=== PATIENT | male | born 1940 ===

== ENCOUNTER 2024-11-09 15:44 | Emergency (ER) | payer MEDICARE, BC, MEDICAID ==
[2024-11-09 16:07] LABS: BASOPHILS ABSOLUTE AUTO 0.03 K/uL (0.00-0.20); BASOPHILS PERCENT AUTO 0.3 % (0.0-2.0); EOSINOPHILS ABSOLUTE AUTO 0.01 K/uL (0.00-0.50); EOSINOPHILS PERCENT AUTO 0.1 % (0.0-5.0); HEMATOCRIT 43.2 % (39.0-49.0); HEMOGLOBIN 14.9 g/dL (13.1-16.8); IMMATURE GRAN ABSOLUTE AUTO 0.02 10^3/uL (0.00-0.04); IMMATURE GRAN PERCENT AUTO 0.2 % (0.0-0.4); LYMPHOCYTES ABSOLUTE AUTO 1.33 K/uL (0.50-3.50); LYMPHOCYTES PERCENT AUTO 14.6 % (10.0-50.0); MEAN CORPUSCULAR HEMOGLOBIN 31.6 pg (28.2-33.3); MEAN CORPUSCULAR HGB CONC 34.5 g/dL (31.7-36.0); MEAN CORPUSCULAR VOLUME 91.7 fL (84.0-98.0); MONOCYTES ABSOLUTE AUTO 1.11 K/uL (0.00-1.00); MONOCYTES PERCENT AUTO 12.2 % (2.0-14.0); NEUTROPHILS ABSOLUTE AUTO 6.61 K/uL (1.40-7.00); NEUTROPHILS PERCENT AUTO 72.6 % (45.0-80.0); PLATELET COUNT,PLT 304 K/uL (150-350); RED BLOOD CELL COUNT 4.71 M/uL (4.33-5.41); RED CELL DISTRIBUTION WIDTH 12.8 % (11.2-14.1); WHITE BLOOD CELL COUNT,WBC 9.1 K/uL (4.0-10.2)
[2024-11-09 16:28] LABS: PROTHROMBIN TIME 10.3 SEC (9.0-11.1); PTT,PARTIAL THROMBOPLSTIN TIME 26.5 SEC (23.8-34.4)
[2024-11-09 16:29] LABS: ANION GAP,POC 17 mmol/L (7-16); BLOOD UREA NITROGEN,POC 18 mg/dL (8-26); CARBON DIOXIDE,POC 19 mmol/L (23-30); CHLORIDE,POC 103 mmol/L (98-107); POTASSIUM,POC 4.8 mmol/L (3.5-4.5); SODIUM,POC 134 mmol/L (138-146)
[2024-11-09 16:30] LABS: CALCIUM IONIZED,POC 1.16 mmol/L (1.12-1.32)
[2024-11-09 16:41] LABS: LACTIC ACID 2.4 mmol/L (0.4-2.0)
[2024-11-09] MEDS: Iopamidol 755 Mg/ML 100 ML Bottle ONE (16:45)
[2024-11-09] MEDS: Labetalol 20 MG/4 ML Syringe IVPUSH ONE ×2 (17:26→18:49)
[2024-11-09] MEDS: Tenecteplase 50 MG Kit IVPUSH ONE (18:08)
[2024-11-09] MEDS: Iopamidol 755 Mg/ML 100 ML Bottle IVPUSH STA (18:20)
[2024-11-09] MEDS: niCARdipine/Normal Saline 20 MG in Premix Bag 1 BAG IV SCH (18:24)
[2024-11-09] MEDS: Sodium Chloride 0.9% 500 ML IV SCH (20:00)
[2024-11-10 06:44] LABS: PRO B-TYPE NATRIUR PEPT,BNPPRO 14 pg/mL (0-125)
== END 2024-11-09 20:25 ==
LOC: LL.ED 15:44
DX: I63.9 Cerebral infarction, unspecified (principal); I10 Essential (primary) hypertension; J44.9 Chronic obstructive pulmonary disease, unspecified; Z79.51 Long term (current) use of inhaled steroids; Z79.899 Other long term (current) drug therapy
CPT/HCPCS: 36415; 37195; 70450; 70496; 70498; 71045; 80047; 82947; 83605; 83880; 84484; 85025; 85610; 85730; 87428; 93005; 96365; 96366; 96375; 99291; J1920; J3101; J7040; Q9967; J3490